=== PATIENT | male | born 1965 | race Caucasian/White ===

== ENCOUNTER → 2016-09-24 | Outpatient (CLI) | payer BC ==
--- NOTE | 2016-09-24 17:27 | CONS ---
DATE OF CONSULTATION: 09/24/2016 CONSULTATION/NEW PATIENT EVALUATION A 51-year-old gentleman who [facility] obstructive sleep apnea-hypopnea syndrome. HISTORY OF PRESENT ILLNESS/SLEEP-WAKE EVALUATION: Patient has had been diagnosed with severe obstructive sleep apnea in 2011. At that time, apnea-hypopnea index 64.5. Since that time patient has been on treatment with CPAP at the pressure of 9 cm of water. Patient continued to use his equipment every night for the whole night. For the last period of time he increased his weight from 210 pounds to 243 pounds and developed snoring during the sleep and sleepiness during the day while he continued to use his CPAP equipment. SLEEP SCHEDULE: His usual sleep schedule from 9:30 p.m. to 4:30 a.m. on working days and from midnight until 8:00 to 8:30 a.m. on weekends. FALLING ASLEEP: No problem with falling asleep. He has TV set in bedroom. Usually sleeps on the stomach position. DURING SLEEP: As I already mentioned, presently he has snoring during the sleep and episodes of choking, wakes up from sleep up to 5 times with one episode of nocturia. No history of hypnagogic hallucinations, sleep paralysis or cataplexy. DURING THE DAY/WAKE STATE: During the day, patient sometimes feels sleepy, [place] Sleepiness Scale increased to 11. PAST MEDICAL HISTORY: Basically none. PAST SURGICAL HISTORY: None. MEDICATIONS: None. REVIEW OF SYSTEMS: Awakenings from sleep, sleepiness during the day, increasing weight. No fevers. No double vision. No recent chest pain. No shortness of breath. No abdominal pain. No bleeding episodes. No blood in urine. No seizure episodes. SOCIAL HISTORY: Negative for smoking. Alcohol consumption, occasional. FAMILY HISTORY: Snoring, diabetes and colon cancer. PHYSICAL EXAMINATION: GENERAL: During physical exam, gentleman without distress. VITAL SIGNS: BP 130/78, HR 72, RR 16. Height 67, weight 243.0. BMI 38.0, neck 18 inches in circumference. Temperature 97.6, oxygen saturation at room air 95%. HEENT: PERRLA, EOMI. Evaluation of oropharynx showed low position of soft palate. NECK: Supple. No JVD. Thyroid is not palpable. LUNGS: Clear to percussion and to auscultation. Good air exchange. No wheezing or rhonchi. HEART: S1, S2 regular. No murmurs, gallops or rubs. ABDOMEN: Obese. Soft and nontender. Bowel sounds are present. No organomegaly appreciated. EXTREMITIES: No clubbing or cyanosis. [employer]: Awake, alert, and oriented x3. Cranial nerves 2 to 7 intact. There is no fasciculation or atrophy noted. No focal deficits observed. IMPRESSION: 1. Severe obstructive sleep apnea-hypopnea syndrome by results of sleep study in 2011. Patient is on treatment with CPAP at 9 cm of water since 2012, increased his weight, developed sleepiness and snoring while on CPAP. [place] Sleepiness Scale is 11. 2. Obesity, body mass index of 38. 3. History of periodic limb movements by results of previous titration. PLAN: 1. Repeat CPAP titration for re-evaluation of effective CPAP pressure at the present time. 2. Losing weight. 3. Sleep hygiene with regular time in bed for at least 8 hours. 4. No driving if feeling any sleepiness. 5. Prescription for all necessary CPAP supplies, including mask, tube, filters. Thank you very much for allowing me to participate in the management of your patient. Sincerely, Kareem Inman MD, PhD, FAASM. Diplomat of [place] [employer], Sleep Medicine Board by [place] [employer] [place] [employer] [facility] [place]
== END | disposition home or self-care (01) ==
LOC: SLEEP 13:05
PROVIDERS: ATTEND Internal Medicine
DX: G47.33 Obstructive sleep apnea (adult) (pediatric) (principal); E66.9 Obesity, unspecified; Z68.38 Body mass index [BMI] 38.0-38.9, adult
CPT/HCPCS: 99211

== ENCOUNTER → 2024-09-22 | Day surgery (SDC) | payer BC ==
[~2024-09-22] MED LIST: LIDOCAINE 1% INJ 10MG/ML (20 ML MDV) ONE; PROPOFOL 10 MG/ML 20 ML VIAL IV ONE
[2024-09-22] MEDS: LACTATED RINGERS 1,000 ML IV SCH (10:11)
[2024-09-22] MEDS: IV FLUID CONTINUATION 1,000 ML IV ONE ×3 (10:13→11:40)
[2024-09-22 10:14] LABS: Glucose,Whole Blood 155 mg/dL (70-110)
[2024-09-22 10:15] VITALS: TEMP 97.8
--- NOTE | 2024-09-22 10:48 | P.PCN ---
Date of Procedure: 09/22/24 Procedure(s) Performed: BRIEF HISTORY: Patient is a 59-year-old pleasant white male scheduled for an elective colonoscopy as a part of evidence of longstanding history of ulcerative colitis diagnosed in 2013. He is maintained Inflectra infusions every 8 weeks. He is in the clinical remission. PROCEDURE PERFORMED: Colonoscopy random biopsies. PREOPERATIVE DIAGNOSIS: Longstanding history of ulcerative colitis. IV sedation per Anesthesia. PROCEDURE: After informed consent was obtained, the patient, was brought into the endoscopy unit. IV sedation was administered by Anesthesia under continuous monitoring. Digital rectal examination was normal. Initially the Olympus CF-160 flexible video colonoscope was then inserted in the rectum, gradually advanced into the cecum without any difficulty. Careful examination was performed as the scope was gradually being withdrawn. Ileocecal valve and the appendiceal orifice were visualized and appeared normal. Prep was excellent. Mucosa of the cecum, ascending colon, transverse colon, descending colon, sigmoid colon, had mild colitis with mucosal erythema, friability and granularity and spontaneous bleeding and multiple biopsies were done at every 10 cm intervals. Mucosa of the rectum appeared normal. Retroflexion was performed in the rectum and no lesions were seen. The patient tolerated the procedure well. IMPRESSION: Active colitis involving the entire colon with sparing of the rectum with mucosal erythema friability granularity and spontaneous oozing status post multiple biopsies RECOMMENDATIONS: Findings of this examination were discussed with the patient as well as his family. He was advised to follow with the biopsy results. He will be seen in the office in 2 weeks..
[2024-09-22 12:06] VITALS: BP 138/90; PULSE 64; RESP 18
== END ==
LOC: ORWHC2ENDO 09:41
PROVIDERS: ATTEND Internal Medicine Gastroenterology
DX: K51.90 Ulcerative colitis, unspecified, without complications (principal)
CPT/HCPCS: 45380; J2003; J2704; 88305